=== PATIENT | male | born 1995 | race Hispanic/Latino ===

== ENCOUNTER 2025-01-17 21:02 | Emergency (ER) | payer SELFPAY ==
[~2025-01-17] VITALS: Ht 170.2 cm; Wt 93.4 kg
[2025-01-18 00:44] VITALS: BP 118/75; PULSE 70; RESP 17; TEMP 98.3; O2SAT 98
--- NOTE | 2025-01-18 00:52 | HMCIMG ---
EXAM: Non-contrast CT examination of the Brain. CLINICAL HISTORY: Headache. Bump on the head. TECHNIQUE: Thin collimated axial CT images of the brain were obtained, with sagittal and coronal reformatted images also submitted. A CT scan was done according to ALARA (As low as reasonably achievable). CONTRAST USED: None. COMPARISON: CT scan of the brain. 09/16/2013. FINDINGS: No acute intracranial abnormality is present. No acute cortical infarction, hemorrhage, mass, or mass effect. No hydrocephalus or abnormal extra-axial fluid collections. The posterior fossa is unremarkable. The skull base and calvarium are intact. The mastoid air cells are clear. 10 mm left ethmoidal polyp. IMPRESSION: No acute intracranial abnormality is present. No new finding. 10 mm left ethmoidal polyp. /[place]
--- NOTE | 2025-01-18 00:58 | ERN ---
General Chief Complaint: Other Problems Stated Complaint: C/O "BUMP" TO BACK OF HEAD; DENIES ANY TRAUMA Time Seen by MD: 21:07 Time Seen by Midlevel: 21:07 Source: patient History of Present Illness Allergies: Coded Allergies: No Known Allergies (Unverified Allergy, Unknown, 01/17/25) Past Medical History Past Medical History: No Pertinent History Past Surgical History: None ED Course Orders Procedure Category Date Status Time Ct Head/Brain W/O CT 01/17/25 Resulted Contrast 23:29 Vital Signs Date Time Temp Pulse Resp B/P (MAP) Pulse Ox O2 Delivery O2 Flow Rate FiO2 01/18/25 00:44 98.2 70 17 118/75 98 Room Air* 0 01/17/25 21:30 98.2 80 18 125/80 98 Room Air* 0 01/17/25 21:04 98.2 83 20 127/79 97 Room Air DX & DISP Disposition: Discharge Departure Impression: Primary Impression: Scalp lump Condition: Stable Additional Instructions: Your CT scan of the head does not reveal any evidence of an abscess, lipoma, enlarged lymph node, or any other abnormality. Continue to monitor your symptoms. If you notice an increase in size of the lump or notice any signs of infection please report to the ER follow up with your primary care doctor. Referrals: SELF,REFERRAL (PCP) Time of Disposition: 01:04 I have reviewed the case, and I agree with, Diagnosis and Plan I performed the substantive portion of the visit. I have reviewed and pe rsonally made and approve the management plan that is documented in the note by myself or the RYANNE. I acknowledge for responsibility for the patient's management plan. DAGOBERTO PRICE Jan 18, 2025 00:58
== END 2025-01-18 01:18 | disposition home or self-care (01) ==
LOC: EDH 21:02
DX: R22.0 Localized swelling, mass and lump, head (principal)
CPT/HCPCS: 70450; 99284